=== PATIENT | female | born 1985 | race Hispanic/Latino ===

== ENCOUNTER 2025-01-20 10:35 | Outpatient (CLI) | payer OTHER, SELFPAY ==
--- NOTE | ~2025-01-20 | MM_ITS ---
EXAMINATION: MM diagnostic [facility] BI w elena HISTORY: Palpable abnormality on the left TECHNIQUE: Craniocaudal and mediolateral oblique 3-D tomosynthesis images were obtained and synthetic 2-D images were generated. CAD analysis was submitted and interpreted. COMPARISON: None available. BREAST PARENCHYMAL COMPOSITION: Dense: The breasts are heterogeneously dense FINDINGS: There is a large circumscribed mass in the area of palpable clinical concern in the lateral left breast. There are no suspicious calcifications. No unexplained architectural distortion is seen. There are no skin or nipple abnormalities identified. There is no adenopathy seen on the images submitted. IMPRESSION: Mass in the palpable area. Ultrasound is recommended. BI-RADS 0 - Incomplete - needs additional imaging evaluation Reviewed, dictated and finalized at location C. INSULATOR
--- NOTE | ~2025-01-20 | US_ITS ---
PROCEDURE(S): US breast LT limited INDICATION(S): Palpable abnormality, which has grown rapidly in the last few weeks. COMPARISON(S): None. TECHNIQUE: Grayscale and color Doppler imaging. FINDINGS: Sonography through the palpable area at 3:00 demonstrates a heterogeneous, circumscribed, macrolobulated mass with fluid-filled tubular structures throughout. There is hyperemia. It measures on the order of 4.0 cm in greatest diameter. It has a parallel orientation. There is posterior acoustic enhancem ent. There is no axillary adenopathy. IMPRESSION: Consideration should be given to a Phyllodes tumor, both secondary to the appearance and the history of very rapid growth. Malignant Phyllodes tumor and usual types of breast CA are not excluded. Ultrasound-guided core biopsy is recommended. BI-RADS 4 - Suspicious for malignancy. Tissue diagnosis is recommended. Reviewed, dictated and finalized at location C. RANCE RATER IMPRESSION: Consideration should be given to a Phyllodes tumor, both secondary to the appea ena and the history of very rapid growth. Malignant Phyllodes tumor and usual types of breast CA are not excluded. Ultrasound-guided core biopsy is recommen ded. BI-RADS 4 - Suspicious for malignancy. Tissue diagnosis is recommended.
== END 2025-01-20 10:36 | disposition home or self-care (01) ==
DX: N63.21 Unspecified lump in the left breast, upper outer quadrant (principal); R92.8 Other abnormal and inconclusive findings on diagnostic imaging of breast
CPT/HCPCS: 76642; 77062; 77066; G0279